=== PATIENT | male | born 1965 | race Caucasian/White ===

== ENCOUNTER → 2017-03-11 | Outpatient (CLI) | payer BC ==
--- NOTE | 2017-03-11 19:39 | DI ---
XR KNEE CMPT 4 OR MORE VWS,03/11/2017 10:56 AM: Clinical History: Right knee pain after injury. Previous Exam: None at this facility. Findings: 4 views of the right knee are obtained, and demonstrate mild loss of joint space within the medial co mpartment. Surrounding soft tissues are unremarkable. There is mild loss of joint space within the an terior compartment as well. Impression: Mild early degenerative changes of the right knee otherwise unremarkable.
== END ==
LOC: MOB RAD 10:58
DX: M25.561 Pain in right knee (principal); V87.8XXA Person injured in other specified noncollision transport accidents involving motor vehicle (traffic), initial encounter
CPT/HCPCS: 73564